=== PATIENT | male | born 1960 | race African-American/Black ===

== ENCOUNTER 2017-12-16 18:21 | Emergency (ER) | payer SELFPAY | END 2017-12-16 20:15 | disposition short-term general hospital (02) | LOC: MADERS 18:21 | DX: M54.16 Radiculopathy, lumbar region (principal); R53.1 Weakness; I10 Essential (primary) hypertension; F17.210 Nicotine dependence, cigarettes, uncomplicated; Z79.899 Other long term (current) drug therapy; Z91.81 History of falling | CPT/HCPCS: 99285 ==

== ENCOUNTER 2018-07-15 15:19 | Outpatient (CLI) | payer OTHER ==
[2018-07-15 16:08] LABS: INR-International Normal Ratio 2.6; PTT 39.1 SEC (22.9-36.1); Prothrombin Time 27.5 SEC (12.0-14.7)
== END 2018-07-15 15:20 | disposition home or self-care (01) ==
LOC: MADLABBHPM 15:19
PROVIDERS: ATTEND Family Medicine
DX: I80.12 Phlebitis and thrombophlebitis of left femoral vein (principal)
CPT/HCPCS: 36415; 85610; 85730

== ENCOUNTER 2018-07-22 15:42 | Outpatient (CLI) | payer OTHER ==
[2018-07-22 16:05] LABS: Prothrombin Time 31.3 SEC (12.0-14.7)
== END 2018-07-22 15:43 | disposition home or self-care (01) ==
LOC: MADLABBHPM 15:42
PROVIDERS: ATTEND Family Medicine
DX: I80.12 Phlebitis and thrombophlebitis of left femoral vein (principal)
CPT/HCPCS: 36415; 85610

== ENCOUNTER 2018-07-26 15:51 | Outpatient (CLI) | payer OTHER ==
[2018-07-26 17:30] LABS: INR-International Normal Ratio 2.9; PTT 57.5 SEC (22.9-36.1); Prothrombin Time 30.1 SEC (12.0-14.7)
== END 2018-07-26 15:52 | disposition home or self-care (01) ==
LOC: MADLABBHPM 15:51
PROVIDERS: ATTEND Family Medicine
DX: I80.12 Phlebitis and thrombophlebitis of left femoral vein (principal)
CPT/HCPCS: 36415; 85610; 85730